=== PATIENT | female | born 1940 | race Caucasian/White ===

== ENCOUNTER → 2017-04-23 | Outpatient (CLI) | payer MEDICARE, OTHER ==
[~2017-04-23] MED LIST: ATORVASTATIN CA80 MG PO; CRESTOR40 MG PO; FLONASE 50 MCG16 GM; HYDROCHLOROTH12.5 M1 PO; LOPRESSOR 25MG.25 MG PO; LOSARTAN POTASS1 TAB PO; METFORMIN ER500 MG PO; NAPROXEN500 M1 PO; PERCOCET 325 MG1 TA3 PO; PREDNISONE 10MG10 MG PO; PROCHLORPERAZINE5 M1 PO; RANITIDINE 150150 MG PO; XARELTO20 MG PO
== END ==
LOC: CARL-LAB 11:35
DX: Z79.899 Other long term (current) drug therapy (principal)